=== PATIENT | male | born 1975 | race Caucasian/White ===

== ENCOUNTER 2022-05-27 08:20 | Outpatient (CLI) | payer OTHER, SELFPAY | END 2022-05-27 08:21 | disposition home or self-care (01) | LOC: OP CLINIC 13:43 | PROVIDERS: PCP Surgery; Visit Provider Internal Medicine Gastroenterology | DX: Z12.11 Encounter for screening for malignant neoplasm of colon (principal); K63.5 Polyp of colon | CPT/HCPCS: 45385; 88305; J2250; J3010 ==

== ENCOUNTER 2023-09-07 09:45 | Emergency (ER) | payer OTHER, SELFPAY ==
[2023-09-07] VITALS (48 sets, daily range): BP systolic 110–154; BP diastolic 72–94; PULSE 58–90; RESP 20; TEMP 35.8; O2SAT 93–100; BMI 30.8
--- NOTE | 2023-09-07 10:13 | CRLHL7_ITS ---
For Patients: As a result of the Century Cures Act, medical imaging exams and procedure reports are released immediately into your electronic medical record. You may view this report before your referring provider. If you have questions, please contact your health care provider. Indication: Chest pain, jaw pain Comparison: Two-view chest September 29, 2019 Technique: PA and lateral views of the chest Findings: There is mild central bronchial thickening without dense consolidation, effusion, or pneumothorax. The cardiomediastinal silhouette is within normal limits. The bony thorax is grossly intact. Impression: Mild central bronchial thickening which may represent minimal pulmonary edema. No dense consolidation. Dictated by Ernie Sweeney MD @ 09/07/2023 10:44:49 AM (Electronically Signed)
--- NOTE | 2023-09-07 10:14 | ED.GENADULT ---
HPI - General Adult General Date Seen: 09/07/23 Chief complaint: Chest Pain Stated complaint: chest pain Time Seen by Provider: 09/07/23 10:13 History of Present Illness HPI narrative: 47-year-old gentleman presenting to the ER this morning with his for evaluation of an episode of substernal chest pain radiating to his jaw associated with heart racing. He is otherwise healthy. He takes a multivitamin. He has had checkups recently and does not have any long-term medical conditions. No history of hypertension, dyslipidemia, tobacco abuse. He does have a strong family history of coronary disease. In fact, his younger brother had a heart attack a couple of years ago. He has been healthy and well lately. He is physically active. He has not had any recent episodes of chest pain, shortness of breath, or any other anginal symptoms. He was deer hunting this morning. He felt normal getting up and going out to his deer stand. He harvested a large dear. As he was dragging the deer up a lot a [place] he noticed on expected fatigue and dyspnea and discomfort in his chest. He says he had to stop 3 or 4 times while dragging the deer, and that is unusual for him. On the 3rd time he. He was really having some discomfort in his chest that he felt his heart pounding. It was not getting better with rest. He was having discomfort so he decided to call his family. They came to pick him up and his brought him straight here to the ER. His brother will help him get his deer out of the bonner. Now that he is resting his symptoms are better. He does not feel his heart pounding anymore. He still has a mild ache ?like heartburn? to the right of his sternum and a little bit of pain radiating up to his right ear. He says he does get heartburn from time to time. No swelling in his legs. No recent travel although he does sometimes travel for work. No history of DVT/PE. No personal history of heart disease. He does not take any medicines for acid reflux. No phosphodiesterase inhibitors. Related Data Home Medications Medication Instructions Recorded Confirmed epinephrine 0.3 mg/0.3 mL IM ONCE PRN allergies 09/07/23 injection, auto-injector Allergies Allergy/AdvReac Type Severity Reaction Status Date / Time bee venom protein (honey bee) Allergy Severe Anaphylaxis Verified 05/27/22 13:49 [facility] Social History Smoking Status: Former smoker Do you use any of these nicotine containing products: Vaping Products Second hand tobacco smoke exposure: No How often do you have a drink containing alcohol: 2-3 times a week How many standard drinks containing alcohol do you have on a typical day: 3 or 4 How often do you have six or more drinks on one occasion: Monthly AUDIT-C Alcohol total score: 6 Non-prescribed substance use: denies use service: No Exam Narrative: Exam Narrative: Constitutional: Appears well-developed and well-nourished. Alert. Conversant. Non toxic. HENT: Head: Atraumatic. Nose: Nose normal. Mouth/Throat: Oral mucosa is clear and moist. no trismus. Pharynx normal. Tonsils symmetric. No tonsillar enlargement, erythema, or exudate. Eyes: Conjunctivae normal. EOM normal. Pupils equal, round, and reactive to light. No scleral icterus. Neck: Normal range of motion. Neck supple. No tracheal deviation present. No JVD Cardiovascular: Normal rate, regular rhythm. No gallop. No friction rub. No murmur heard. Symmetric radial and PT artery pulses Pulmonary/Chest: Effort normal. No stridor. No respiratory distress. No wheezes. No rales. No rhonchi . No tenderness. Abdominal: Soft. Bowel sounds normal. No distension. No mass. No tenderness. No rebound. No guarding. Musculoskeletal: RUE: Normal range of motion. No tenderness. No deformity LUE: Normal range of motion. No tenderness. No deformity RLE: Normal range of motion. No edema. No tenderness. No deformity LLE: Normal range of motion. No edema. No tenderness. No deformity Neurological: Alert and oriented to person, place, and time. Normal strength. CN II-VII intact. No sensory deficit. GCS eye subscore is 4. GCS verbal subscore is 5. GCS motor subscore is 6. Normal coordination Skin: Skin is warm and dry. No rash noted. No pallor. Normal capillary refill. Psychiatric: Normal mood. Normal affect. Const: Vital Signs, click to edit/add: Vital Signs - 24 hr 09/07/23 10:03 09/07/23 10:04 09/07/23 10:04 Temperature 96.4 F L Pulse Rate 70 70 Pulse Rate [Pulse Oximeter] 66 Respiratory Rate 20 Blood Pressure 134/94 H Blood Pressure [Ri ght Upper Arm] 154/84 H Pulse Oximetry 99 99 99 Oxygen Delivery Me thod Room Air 09/07/23 10:15 09/07/23 10:30 09/07/23 10:31 Temperature Pulse Rate 64 74 70 Pulse Rate [Pulse Oximeter] Respiratory Rate Blood Pressure 127/92 H Blood Pressure [Ri ght Upper Arm] Pulse Oximetry 99 97 99 Oxygen Delivery Me thod 09/07/23 10:45 09/07/23 10:50 09/07/23 10:56 Temperature Pulse Rate 67 72 74 Pulse Rate [Pulse Oximeter] Respiratory Rate Blood Pressure 118/85 121/87 Blood Pressure [Ri ght Upper Arm] Pulse Oximetry 99 97 93 Oxygen Delivery Me thod 09/07/23 11:00 09/07/23 11:02 09/07/23 11:07 Temperature Pulse Rate 71 69 67 Pulse Rate [Pulse Oximeter] Respiratory Rate Blood Pressure 114/72 116/91 H Blood Pressure [Ri ght Upper Arm] Pulse Oximetry 96 97 98 Oxygen Delivery Me thod 09/07/23 11:12 09/07/23 11:15 09/07/23 11:17 Temperature Pulse Rate 68 63 61 Pulse Rate [Pulse Oximeter] Respiratory Rate Blood Pressure 121/88 118/82 Blood Pressure [Ri ght Upper Arm] Pulse Oximetry 95 97 95 Oxygen Delivery Me thod 09/07/23 11:21 09/07/23 11:27 09/07/23 11:30 Temperature Pulse Rate 63 65 58 L Pulse Rate [Pulse Oximeter] Respiratory Rate Blood Pressure 125/87 125/88 Blood Pressure [Ri ght Upper Arm] Pulse Oximetry 98 98 97 Oxygen Delivery Me thod 09/07/23 11:31 09/07/23 11:36 09/07/23 11:41 Temperature Pulse Rate 60 60 65 Pulse Rate [Pulse Oximeter] Respiratory Rate Blood Pressure 119/89 126/75 123/84 Blood Pressure [Ri ght Upper Arm] Pulse Oximetry 98 99 99 Oxygen Delivery Me thod 09/07/23 11:45 09/07/23 11:46 09/07/23 11:51 Temperature Pulse Rate 61 65 69 Pulse Rate [Pulse Oximeter] Respiratory Rate Blood Pressure 123/82 124/84 Blood Pressure [Ri ght Upper Arm] Pulse Oximetry 99 97 97 Oxygen Delivery Me thod 09/07/23 11:56 09/07/23 12:00 09/07/23 12:01 Temperature Pulse Rate 61 68 58 L Pulse Rate [Pulse Oximeter] Respiratory Rate Blood Pressure 123/80 117/84 Blood Pressure [Ri ght Upper Arm] Pulse Oximetry 100 95 98 Oxygen Delivery Me thod 09/07/23 12:06 09/07/23 12:11 09/07/23 12:15 Temperature Pulse Rate 62 69 60 Pulse Rate [Pulse Oximeter] Respiratory Rate Blood Pressure 124/81 119/85 Blood Pressure [Ri ght Upper Arm] Pulse Oximetry 98 98 98 Oxygen Delivery Me thod 09/07/23 12:16 09/07/23 12:21 09/07/23 12:30 Temperature Pulse Rate 66 66 Pulse Rate [Pulse Oximeter] Respiratory Rate Blood Pressure 112/80 121/80 Blood Pressure [Ri ght Upper Arm] Pulse Oximetry 97 99 Oxygen Delivery Me thod 09/07/23 12:31 09/07/23 12:45 09/07/23 13:00 Temperature Pulse Rate 67 61 68 Pulse Rate [Pulse Oximeter] Respiratory Rate Blood Pressure 122/81 Blood Pressure [Ri ght Upper Arm] Pulse Oximetry 97 98 98 Oxygen Delivery Me thod 09/07/23 13:01 09/07/23 13:15 09/07/23 13:31 Temperature Pulse Rate 73 67 74 Pulse Rate [Pulse Oximeter] Respiratory Rate Blood Pressure 110/73 116/75 Blood Pressure [Ri ght Upper Arm] Pulse Oximetry 97 96 95 Oxygen Delivery Me thod 09/07/23 13:32 09/07/23 13:48 09/07/23 14:00 Temperature Pulse Rate 64 74 66 Pulse Rate [Pulse Oximeter] Respiratory Rate Blood Pressure Blood Pressure [Ri ght Upper Arm] Pulse Oximetry 98 98 98 Oxygen Delivery Me thod 09/07/23 14:01 09/07/23 14:15 Temperature Pulse Rate 69 68 Pulse Rate [Pulse Oximeter] Respiratory Rate Blood Pressure 113/84 Blood Pressure [Ri ght Upper Arm] Pulse Oximetry 97 96 Oxygen Delivery Me thod Course Course ED Course: Recheck-had a 1/10 mild heartburn discomfort when he arrived. Did not respond to nitro. Nitro gave him a brief headache but he declined any treatment for it. Recheck-pain subsequently resolved without any further treatment. Reevaluation(s) Reevaluation #1: Recheck-stable. No recurrent symptoms. Heart rate and blood pressure stable. Vital Signs Vital signs: Initial Vital Signs Pulse Rate 70 09/07/23 10:03 Pulse Oximetry 99 09/07/23 10:03 Vital Signs Pulse Rate 70 09/07/23 10:03 Pulse Oximetry 99 09/07/23 10:03 Temperature 96.4 F L 09/07/23 10:04 Pulse Rate 68 09/07/23 14:15 Respiratory Rate 20 09/07/23 10:04 Blood Pressure 113/84 09/07/23 14:01 Pulse Oximetry 96 09/07/23 14:15 Oxygen Delivery Method Room Air 09/07/23 10:04 Medications Administered Medications: Generic Name Dose Route Start Last Admin Trade Name Freq PRN Reason Stop Dose Admin Nitroglycerin 0.4 mg 09/07/23 10:13 09/07/23 10:46 Nitroglycerin 0.4 Mg Tab.Subl SUBLINGUAL 0.4 mg Q5M PRN Administration Discontinued Medications Generic Name Dose Route Start Last Admin Trade Name Freq PRN Reason Stop Dose Admin Aspirin 162 mg 09/07/23 10:13 09/07/23 10:29 Aspirin 81 Mg Tab.Chew PO 09/07/23 10:14 162 mg ONCE ONE Administration Sodium Chloride 1,000 mls @ 1,000 mls/hr 09/07/23 10:15 09/07/23 11:40 0.9 % Sodium Chloride 1000 Ml IV 09/07/23 11:14 Infused .Q1H SAMMI Infusion Medical Decision Making [facility] Narrative Medical decision making narrative: This patient presents to the ER today for evaluation of chest pain and shortness of breath that occurred when he was dragging a deer up held this morning while hunting.. Differential was broad. He did have some racing heart during the event which raises concern for possible cardiac arrhythmia. However throughout his stay here in the ER he had normal sinus rhythm without any ectopy or arrhythmia. We considered possible ACS, however workup with EKG and troponin is negative. HEART score is 3, which puts him at low risk for adverse cardiac events.. Given time since onset of symptoms, we did check an initial and 3 hour delta troponin. Both are undetectable. I do not think the patient needs to be admitted for further sets of enzymes. He has not had any recent episodes of exertional chest pain or shortness of breath suggest unstable angina. However with this single event this could have been a 1st episode of angina. I do think he needs an outpatient stress test. Recommend baby aspirin 81 mg per day until follow-up with primary care to arrange stress test. Precautions for return to the ER immediately with any recurrent chest pain, shortness of breath, or other concerning symptoms. EKG shows no evidence for pericarditis. Clinical presentation not suggestive of myocarditis. Chest x-ray shows no evidence for pneumonia, pneumothorax, pulmonary edema, pleural effusion, rib fracture, cardiomegaly. Mediastinum is normal on the x-ray. The patient has no ripping or tearing pain through to the back and has symmetric pulses on exam, no other acute neuro findings so I doubt aortic dissection. Risk of radiation and contrast exposure would outweigh the benefit of CT angiogram. We considered PE for this patient. D-dimer is normal No wheezing or bronchospasm to suggest COPD/asthma. No signs of chest wall cellulitis, shingles, injury. With reasonable clinical confidence, I think the patient is safe for outpatient follow up. Discussed return precautions. Questions answered. Patient voices comfort with the plan. Lab Data Labs: Lab Results 09/07/23 09/07/23 09/07/23 Range/Units 10:20 12:19 13:20 WBC 7.51 (4.50-11.00) K/uL RBC 4.90 (4.30-5.90) m/uL Hgb 15.1 (13.5-17.5) gm/dL Hct 44.6 (37.0-53.0) % MCV 91 (80-100) fL MCH 31 (26-34) pg MCHC 34 (32-36) gm/dL RDW Coeff of Evelyn 12.2 (11.5-15.5) % Plt Count 225 (140-440) K/uL Neut % (Auto) 75.4 H (42.0-72.0) % Lymph % (Auto) 15.3 L (20-44) % [place] % (Auto) 7.6 (0.0-11.0) % Eos % (Auto) 1.5 (0.0-7.0) % Baso % (Auto) 0.1 (0.0-3.0) % Neut # (Auto) 5.70 (1.7-7.0) K/uL Lymph # (Auto) 1.10 (0.90-2.90) K/uL [place] # (Auto) 0.60 (0.00-0.90) K/UL Eos # (Auto) 0.11 (0.00-0.50) K/uL Baso # (Auto) 0.01 (0.00-0.30) K/uL Abs Immat Gran (auto) 0.01 (0.00-0.30) K/uL Imm/Tot Granulo (auto) 0.1 % D-Dimer Quant (PE/DVT) < 0.27 (0.00-0.50) ug/ml Sodium 138 (135-149) mmol/L Potassium 4.7 (3.6-5.1) mmol/L Chloride 103 (96-114) mmol/L Carbon Dioxide 26 (20-32) mmol/L Anion Gap 9 (7-15) mEq/L BUN 17 (5-24) mg/dL Creatinine 1.0 (0.5-1.5) mg/dL Estimated Creat Clear 105.03 Estimated GFR 93 ml/min Glucose 111 (60-115) mg/dL Calcium 9.7 (8.4-10.6) mg/dL Troponin I < 0.01 L < 0.01 L (0.01-0.04) ng/mL NT-Pro-B Natriuret Pep 21 pg/mL Lab Acknowledgement Test Added Imaging Data Chest x-ray: Attestation: I have reviewed the pertinent imaging results. My impression: No infiltrate. No pneumothorax. No pleural effusion. Normal cardiac silhouette. Normal mediastinum Radiologist's impression: Impression: Mild central bronchial thickening which may represent minimal pulmonary edema. No dense consolidation. ECG Data Attestation: I personally reviewed and interpreted this ECG as follows: Interpretation: Normal sinus rhythm . Rate 65 MA 168 QRS axis normal axis. Right bundle-branch block morphology. ST segment/T wave: No ST segment elevation or depression. T-wave inversions V1 and V2. Nonspecific QTc: 461 Discharge Plan Discharge Clinical Impression: Chest pain Patient Disposition: Home, Self-Care Condition: Stable Instructions: Chest Pain (DC) Additional Instructions: As we discussed, please return to the ER immediately if you have any concerning symptoms; especially if you experience more chest pain or chest discomfort, trouble breathing, or palpitations. Take baby aspirin (81 mg) once per day until you have your follow-up visit with your doctor and your stress test. Please see your regular doctor within the next 2-4 days for a recheck and to arrange an outpatient stress test. Prescriptions: No Action epinephrine 0.3 mg/0.3 mL auto-injector IM ONCE PRN (Reason: allergies) Follow Up/Referrals: Satya Mancuso MD [Primary Care Provider] - Stand Alone Forms: [employer] Info Instructions
[2023-09-07] MEDS: ASPIRIN 81 MG TAB.CHEW 162 MG PO (10:29)
[2023-09-07 10:35] LABS: Basophils Absolute Auto 0.01 K/uL (0.00-0.30); Basophils Percent Auto 0.1 % (0.0-3.0); Eosinophils Absolute Auto 0.11 K/uL (0.00-0.50); Eosinophils Percent Auto 1.5 % (0.0-7.0); Hematocrit 44.6 % (37.0-53.0); Hemoglobin* 15.1 gm/dL (13.5-17.5); Immature Granulocytes Abs Auto 0.01 K/uL (0.00-0.30); Immature Granulocytes Pct Auto 0.1 %; Lymphocytes Percent Auto 15.3 % (20-44); Mean Corpuscular HGB Conc 34 gm/dL (32-36); Mean Corpuscular Hemoglobin 31 pg (26-34); Mean Corpuscular Volume 91 fL (80-100); Monocytes Percent Auto 7.6 % (0.0-11.0); Neutrophils Percent Auto 75.4 % (42.0-72.0); Platelet Count* 225 K/uL (140-440); RDW Coefficient of Variation % 12.2 % (11.5-15.5); White Blood Count* 7.51 K/uL (4.50-11.00)
[2023-09-07] MEDS: 0.9 % SODIUM CHLORIDE 1000 ml 1,000 ML IV (10:37)
[2023-09-07 10:39] LABS: Slide Review Reflex No
[2023-09-07] MEDS: NITROGLYCERIN 0.4 MG TAB.SUBL SUBLINGUAL (10:46)
[2023-09-07 10:48] LABS: Chloride* 103 mmol/L (96-114); Potassium* 4.7 mmol/L (3.6-5.1); Sodium* 138 mmol/L (135-149)
--- NOTE | 2023-09-07 10:50 | ED.NURSE ---
was given a nitro. no change in the annoying feeling in chest 1-11/22. bp lowered.118/85. does have a headache.
[2023-09-07 10:51] LABS: Anion Gap 9 mEq/L (7-15); Blood Urea Nitrogen* 17 mg/dL (5-24); Carbon Dioxide* 26 mmol/L (20-32); Est. Creatinine Clearance* 105.03; Estimated Glomerular Filt Rate 93 ml/min
[2023-09-07 10:52] LABS: Calcium* 9.7 mg/dL (8.4-10.6); Glucose* 111 mg/dL (60-115)
[2023-09-07 11:19] LABS: Troponin I* < 0.01 ng/mL (0.01-0.04)
[2023-09-07 11:21] LABS: D Dimer Quantitative* < 0.27 ug/ml (0.00-0.50)
[2023-09-07 12:52] LABS: NT Pro B Type NatriureticPept* 21 pg/mL
[2023-09-07 13:58] LABS: Troponin I* < 0.01 ng/mL (0.01-0.04)
== END 2023-09-07 15:36 | disposition home or self-care (01) ==
PROVIDERS: Emergency Provider Emergency Medicine; PCP Surgery
DX: R07.9 Chest pain, unspecified (principal)
CPT/HCPCS: 36415; 71046; 80048; 83880; 84484; 85025; 85379; 93005; 96360; 99284; 99285; A9270; J7030